=== PATIENT | male | born 1950 | race Caucasian/White ===

== ENCOUNTER → 2018-09-10 | Day surgery (SDC) | payer OTHER ==
[~2018-09-10] MED LIST: FLOMAX0.4 MG PO; MELATONIN3 MG PO; NORCO 5-325 TA1 EAC1 PO; NYQUIL PO
--- NOTE | ~2018-09-10 | OP ---
[address] [address] OPERATIVE REPORT Name: CANDICE NEGRETE Room: [facility].#: [id number] Admission: 09/10/18 Attend Phys: Pedro Villagomez MD Discharge: Date of : 48 Report #: [id number] THIS REPORT FOR: //name// CC: Lelia Ricky Villagomez DATE OF SERVICE: 09/10/2018 PREOPERATIVE DIAGNOSES: History of bladder cancer, ureteral cancer, hematuria, prostate cancer, urinary retention. PROCEDURE: Cystoscopy with bladder washing. SURGEON: Pedro Villagomez MD ANESTHESIA: General. ESTIMATED BLOOD LOSS: None. DRAINS: 20-Stateless Singh catheter. SPECIMENS: Bladder washings for cytology. COMPLICATIONS: None. INDICATIONS: As above. 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 Also, has a history of bladder cancer and newly diagnosed prostate cancer. He has recently developed urinary retention and hydronephrosis, possibly due to retention. Alternatives for management were discussed and he presents for cystoscopy with possible dilation of urethral stricture, bilateral retrograde pyelograms, possible ureteroscopies with biopsies, possible bladder biopsies versus transurethral resection of bladder tumors. Risks of the procedure were explained. He voices clear understanding and wants to proceed. DESCRIPTION OF PROCEDURE: The patient was pretreated with IV antibiotics. After induction of general anesthesia, he was positioned, prepped and draped in the lithotomy position. Time-out procedure was performed. Cystourethroscopy was performed. The anterior urethra was normal. 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 The bladder was entered and systematically examined with 30 and 70 degree scopes. Prostate is somewhat friable as well. There are no tumors visible in the bladder. I could not identify ureteral orifices, possibly due to the fixation of his bladder neck limiting mobility of the scope as well as the friability of his prostate, [place] [address] OPERATIVE REPORT Name: CANDICE NEGRETE CAROLEEBlaise Room: [facility].#: [id number] Admission: 09/10/18 Attend Phys: Pedro Villagomez MD Discharge: Date of : 48 Report #: [id number] The trigone was probed gently with a 5-Stateless ureteral catheter, but ureteral orifices were not found. I elected to abandon further attempts and access to the ureters/ureteral stump due to his solitary kidney. The bladder was left partially full and the scope removed. A 20-Stateless Singh catheter was placed and secured with sterile water in the balloon. The bladder was emptied and then normal saline used to obtain bladder washings for cytology. The patient tolerated the procedure well and was taken to the recovery room in stable condition. Further management will depend on cytology results and his clinical progress. This will likely involve repeat imaging and even possibly repeat cystoscopy after prostate cancer therapy is begun. By: [id number] Villagomez MD /nt
[2018-09-10 06:49] LABS: CALCIUM 9.2 mg/dL (8.5-10.1); POTASSIUM 4.1 mmol/L (3.5-5.1)
--- NOTE | 2018-09-11 16:06 | PATH ---
[address] [address] PATHOLOGY RPT PROCEDURE Name: CANDICE NEGRETE Room: [facility]#: [id number] Admission: 09/10/18 Date of : 48 Discharge: Report #: [id number] Path Case #: [id number] Note [facility] Accession Number: [id number] TESTS RESULT FLAG UNITS REF RANGE LAB Clinician Provided Cytology Information No. of containers..01 Other (Miscellaneous) Source: BLADDER WASHING DIAGNOSIS: 02 BLADDER WASHING NEGATIVE FOR MALIGNANT CELLS. REACTIVE UROTHELIAL CELLS AND ACUTE INFLAMMATORY CELLS. Signed out by: 02 Primo Velazco MD, Pathologist NPI- [id number] Performed by: 01 Melodie Bond, Lieutenant Firefighter ([facility]) Gross description: 01 50ML, RED, CLOUDY /LCS FLAG LEGEND: L-Low Normal,H-High Normal,LL-Alert Low,HH-Alert High <-Panic Low,>-Panic High,A-Abnormal,AA-Critical Abnormal Performed at: [address] [place] [address] Paulie Gordon MD, [address] [address] Primo Velazco MD, Specimen Comment: A courtesy copy of this report has been sent to Specimen Comment: [phone], . Specimen Comment: Report sent to / DR ROCHA Performed at: [address], [place], [place] [id number] MD Paulie Gordon MD Phone: [phone]
== END | disposition home or self-care (01) ==
LOC: M.SUR 06:19
DX: N30.01 Acute cystitis with hematuria (principal); R33.9 Retention of urine, unspecified; Z85.46 Personal history of malignant neoplasm of prostate; Z85.51 Personal history of malignant neoplasm of bladder; Z85.54 Personal history of malignant neoplasm of ureter; Z88.6 Allergy status to analgesic agent; Z79.899 Other long term (current) drug therapy